=== PATIENT | female | born 1945 | race Caucasian/White ===

== ENCOUNTER 2019-09-24 12:09 | Emergency (ER) | payer OTHER, SELFPAY ==
[2019-09-24 12:37] VITALS: BP 118/63; PULSE 79; RESP 20; TEMP 36.4; O2SAT 100
--- NOTE | 2019-09-24 12:38 | ED.FEMALEGU ---
HPI - Female Genitourinary General Chief complaint: Urogenital-Female Stated complaint: UTI symptoms Time Seen by Provider: 09/24/19 12:38 Source: patient and RN notes reviewed History of Present Illness HPI Narrative: Patient is 74-year-old female that presents the urgent care with complaints of a possible UTI. Patient states that on Wednesday and morning she was having some urinary frequency and burning which subsided until this morning approximately 4 hours ago. Patient states that she has extreme urgency, frequency, burning with urination and suprapubic pressure. Patient denies any abdominal pain, fever, nausea, vomiting. Denies any frequent history of urinary tract infections. No other acute complaints. No acute distress noted. Patient had a plan of care. Related Data Home Medications Medication Instructions Recorded Confirmed omeprazole 09/24/19 simvastatin mg 09/24/19 Allergies Allergy/AdvReac Type Severity Reaction Status Date / Time codeine Allergy Severe NAUSEA AND Verified 09/24/19 12:34 VOMITING hydrocodone Allergy Severe NAUSEA AND Verified 09/24/19 12:34 VOMITING morphine Allergy Severe NAUSEA AND Verified 09/24/19 12:34 VOMITING NSAIDS (Non-Steroidal Allergy Severe NAUSEA AND Verified 09/24/19 12:34 Anti-Inflamma VOMITING tramadol Allergy Severe NAUSEA AND Verified 09/24/19 12:34 VOMITING amoxicillin Allergy Unknown GI UPSET Unverified 09/24/19 12:34 clavulanic acid Allergy Unknown GI UPSET Unverified 09/24/19 12:34 Review of Systems Review of Systems: Narrative: CONSTITUTIONAL: Denies fever, chills, or sweats. EYES: Denies visual changes, redness, or discharge. ENT: Denies rhinorrhea, congestion, sore throat, or otalgia. CARDIOVASCULAR: Denies chest pain, palpitations, or edema. RESPIRATORY: Denies cough or dyspnea. GASTROINTESTINAL: Denies abdominal pain, nausea, vomiting, or diarrhea. GENITOURINARY: Reports of dysuria, frequency, urgency, suprapubic pressure SKIN: Denies rash or itching. MUSCULOSKELETAL: Denies back pain, joint pain, or myalgia. NEUROLOGIC: Denies headache, numbness, or weakness. All other systems reviewed are negative, except as documented in HPI. PMFSH Comments At the time of my signature, I reviewed and agree with the nursing past medical, surgical, social, and family history. There is no relevant family history pertinent to the patient complaint. Exam Narrative: Exam Narrative: GENERAL: This is a well-nourished, well-developed patient, in no apparent distress. HEAD: normocephalic, atraumatic. EYES: PERRL. Sclera clear/white. Vision is grossly intact. EARS: External ears normal NOSE: External nose normal with no obvious nasal discharge, nares without redness, no rhinorrhea. THROAT: Mucous membranes moist NECK: Neck supple CARDIOVASCULAR: Regular rate and rhythm without murmurs, gallops, or rubs. RESPIRATORY: Clear to auscultation. Breath sounds equal bilaterally. No wheezes, rales, or rhonchi. GASTROINTESTINAL: Abdomen soft, mild suprapubic pressure, nondistended. SKIN: warm, intact with no suspicious lesions or rash, good texture and turgor. NEURO: awake, alert, and oriented to person, place and time. There were no obvious focal neurologic abnormalities. EXTREMITIES: No clubbing, cyanosis, or edema. BACK: Negative bilateral CVA tenderness Course Vital Signs Vital signs: Vital Signs Temperature 97.6 F 09/24/19 12:37 Pulse Rate 79 09/24/19 12:37 Respiratory Rate 20 09/24/19 12:37 Blood Pressure 118/63 09/24/19 12:37 Pulse Oximetry 100 09/24/19 12:37 Temperature 97.6 F 09/24/19 12:37 Pulse Rate 79 09/24/19 12:37 Respiratory Rate 20 09/24/19 12:37 Blood Pressure 118/63 09/24/19 12:37 Pulse Oximetry 100 09/24/19 12:37 Reviewed MDM - Female Genitourinary MDM Narrative Medical decision making narrative: Reviewed lab results with the patient. She is aware that urine analysis was positive for urina
== END 2019-09-24 13:11 | disposition home or self-care (01) ==
PROVIDERS: Emergency Provider Nurse Practitioner Family; PCP Family Medicine
DX: N39.0 Urinary tract infection, site not specified (principal); E78.00 Pure hypercholesterolemia, unspecified; K21.9 Gastro-esophageal reflux disease without esophagitis; Z96.662 Presence of left artificial ankle joint; Z96.651 Presence of right artificial knee joint
CPT/HCPCS: 81003; 87077; 87086; 87088; 87186; 99213; G0463

== ENCOUNTER 2021-03-08 19:18 | Emergency (ER) | payer OTHER, SELFPAY ==
[2021-03-08 19:23] VITALS: BP 114/62; PULSE 84; RESP 16; TEMP 36.7; O2SAT 99
--- NOTE | 2021-03-08 19:58 | ED.GENADULT ---
HPI - General Adult General Chief complaint: Extremity Problem,Nontraumatic Stated complaint: R FOOT PAIN Time Seen by Provider: 03/08/21 19:58 Source: patient and RN notes reviewed Mode of arrival: ambulatory Limitations: no limitations History of Present Illness HPI narrative: 75-year-old female presents with complaints of redness, warmth, pain, and swelling to right foot for 1 day. Silvina reported bunionectomy on February 27, 2021 and on March 07 noticed redness to top of foot which included little toe. Increasing redness, swelling, and pain throughout the night and day. No treatment. Denies radiating pain, redness, or swelling. Exacerbating factors consist of movement. Denies open areas or drainage. Denies fever or chills. Denies nausea, vomiting, and abdominal pain. Tolerating po intake well. Denies dyspnea and chest pain. The patient reports she has not been diagnosed with COVID-19. The patient reports she received 2 Moderna COVID-19 vaccines. The patient reports she is not waiting for the results of a COVID-19 lab test. The patient reports she does not have weakness, fatigue, or myalgia. The patient reports he does not have a new or worsening cough. The patient reports he does not have any rhinorrhea, congestion, loss of taste or smell, sore throat, and diarrhea. Denies recent traveling. Denies concerns for COVID-19 or exposures. At this time, the patient is not suspected of having COVID-19. Some parts of this dictation were generated by voice recognition software and may contain typographical and/or grammatical inaccuracies. Related Data Home Medications Medication Instructions Recorded Confirmed omeprazole 20 mg PO DAILY 09/24/19 10/29/20 simvastatin 40 mg PO DAILY 09/24/19 10/29/20 biotin 10,000 mcg capsule 10,000 mcg PO DAILY 10/21/20 10/29/20 calcium carbonate 600 mg calcium 600 mg PO DAILY 10/21/20 03/08/21 (1,500 mg) tablet inulin-chromium picolinate 2 1 tablet PO DAILY 10/21/20 03/08/21 gram-100 mcg chewable tablet loperamide-simethicone 2 mg-125 mg 1 tablet PO Q3H PRN 10/21/20 03/08/21 tablet Allergies Allergy/AdvReac Type Severity Reaction Status Date / Time codeine Allergy Severe NAUSEA AND Verified 03/08/21 19:40 VOMITING hydrocodone Allergy Severe NAUSEA AND Verified 03/08/21 19:40 VOMITING morphine Allergy Severe NAUSEA AND Verified 03/08/21 19:40 VOMITING NSAIDS (Non-Steroidal Allergy Severe NAUSEA AND Verified 03/08/21 19:40 Anti-Inflamma VOMITING tramadol Allergy Severe NAUSEA AND Verified 03/08/21 19:40 VOMITING amoxicillin Allergy Unknown GI UPSET Unverified 03/08/21 19:40 clavulanic acid Allergy Unknown GI UPSET Unverified 03/08/21 19:40 Review of Systems Review of Systems: Narrative: CONSTITUTIONAL: Denies fever, chills, sweats. EYES: Denies visual changes, redness, discharge. ENT: Denies rhinorrhea, congestion, sore throat, otalgia. CARDIOVASCULAR: Denies chest pain, palpitations, edema. RESPIRATORY: Denies dyspnea, wheezing, cough. GASTROINTESTINAL: Denies abdominal pain, nausea, vomiting, diarrhea. SKIN: Complains of redness, swelling, warmth, and pain to RT foot. Denies drainage. MUSCULOSKELETAL: Denies acute back pain, joint pain, or myalgia. NEUROLOGIC: Denies numbness or focal weakness. PSYCHIATRIC: Denies anxiety or depression. All systems reviewed & are unremarkable except as noted in HPI and below. [facility] Past Medical History Medical History (Updated 03/09/21 @ 00:01 by Aracely Rubio) Allergies Arthritis Bunion of great toe of right foot GERD (gastroesophageal reflux disease) Surgical History Surgical History (Updated 03/08/21 @ 20:14 by WILLIAM Mendoza) History of ankle surgery LY History of breast mammoplasty History of bunionectomy of right great toe History of cholecystectomy History of hysterectomy History of knee surgery total RT knee History of left ankle joint replacement History of right knee join
== END 2021-03-08 20:25 | disposition home or self-care (01) ==
PROVIDERS: Emergency Provider Nurse Practitioner Family; PCP Family Medicine
DX: L03.115 Cellulitis of right lower limb (principal); Z87.891 Personal history of nicotine dependence; M19.90 Unspecified osteoarthritis, unspecified site; K21.9 Gastro-esophageal reflux disease without esophagitis; Z96.653 Presence of artificial knee joint, bilateral; Z96.662 Presence of left artificial ankle joint
CPT/HCPCS: 99213; G0463

== ENCOUNTER 2021-09-24 17:13 | Emergency (ER) | payer OTHER, SELFPAY ==
[2021-09-24 17:23] VITALS: BP 125/48; PULSE 76; RESP 16; TEMP 36.4; O2SAT 99
--- NOTE | 2021-09-24 17:54 | ED.FEMALEGU ---
HPI - Female Genitourinary General Chief complaint: Urogenital-Female Stated complaint: FREQUENT/BURNING URINATION Time Seen by Provider: 09/24/21 17:54 Source: patient and RN notes reviewed Mode of arrival: ambulatory Limitations: no limitations History of Present Illness HPI Narrative: 76-year-old female presents with concern for 1 day history of dysuria, suprapubic pressure. She reports history of urinary tract infections. She denies abdominal pain, back pain, fever, nausea, vomiting. Denies hematuria. MD elicited complaint: UTI Related Data Home Medications Medication Instructions Recorded Confirmed omeprazole 20 mg PO DAILY 09/24/19 10/29/20 simvastatin 40 mg PO DAILY 09/24/19 10/29/20 biotin 10,000 mcg capsule 10,000 mcg PO DAILY 10/21/20 10/29/20 calcium carbonate 600 mg calcium 600 mg PO DAILY 10/21/20 03/08/21 (1,500 mg) tablet inulin-chromium picolinate 2 1 tablet PO DAILY 10/21/20 03/08/21 gram-100 mcg chewable tablet loperamide-simethicone 2 mg-125 mg 1 tablet PO Q3H PRN 10/21/20 03/08/21 tablet Allergies Allergy/AdvReac Type Severity Reaction Status Date / Time codeine Allergy Severe NAUSEA AND Verified 03/08/21 19:40 VOMITING hydrocodone Allergy Severe NAUSEA AND Verified 03/08/21 19:40 VOMITING morphine Allergy Severe NAUSEA AND Verified 03/08/21 19:40 VOMITING NSAIDS (Non-Steroidal Allergy Severe NAUSEA AND Verified 03/08/21 19:40 Anti-Inflamma VOMITING tramadol Allergy Severe NAUSEA AND Verified 03/08/21 19:40 VOMITING amoxicillin Allergy Unknown GI UPSET Unverified 03/08/21 19:40 clavulanic acid Allergy Unknown GI UPSET Unverified 03/08/21 19:40 Review of Systems Review of Systems: CONSTITUTIONAL: Denies malaise, chills, sweats, or fever. CARDIOVASCULAR: Denies chest pain, palpitations, or edema. RESPIRATORY: Denies cough or dyspnea. GASTROINTESTINAL: Denies abdominal pain, nausea, vomiting, diarrhea GENITOURINARY: Reports dysuria, suprapubic pressure. Denies frequency, urgency, flank pain or hematuria. SKIN: Denies rash or itching. MUSCULOSKELETAL: Denies back pain or myalgia. All systems reviewed & are unremarkable except as noted in HPI and below PMFSH Past Medical History Medical History (Updated 09/24/21 @ 17:59 by Yael Fisher NP) Allergies Arthritis Bunion of great toe of right foot GERD (gastroesophageal reflux disease) Surgical History Surgical History (Updated 03/08/21 @ 20:14 by WILLIAM Mendoza) History of ankle surgery LY History of breast mammoplasty History of bunionectomy of right great toe History of cholecystectomy History of hysterectomy History of knee surgery total RT knee History of left ankle joint replacement History of right knee joint replacement March 2016 History of tonsillectomy Hx of appendectomy Family History Family History (Updated 03/08/21 @ 20:15 by WILLIAM Mendoza) Father Acute myocardial infarction, Onset Age: 67 Mother Heart disease Other Diabetes mellitus Social History Social History (Updated 03/08/21 @ 20:15 by WILLIAM Mendoza) Smoking status: Former smoker Tobacco type: cigarettes Second hand tobacco smoke exposure: No Smoking end date: 08/16/77 Alcohol intake: current Substance use: never Substance use type: does not use Gender identity (if verbalized by the patient): Female Sexual Orientation (if Verbalized by the Patient): Straight or Heterosexual Comments At time of signature, agree with nursing past medical, surgical, social and family history. There is no relevant family history pertinent to the presenting complaint Exam Narrative: GENERAL: Well-appearing, well-nourished, and in no acute distress. HEAD: Normocephalic. EYES: PERRLA, conjunctivae clear. NECK: Supple. No lymphadenopathy CHEST: Clear to auscultation. No respiratory distress. HEART: Regular rate and rhythm. ABDOMEN: Soft, nontender upon palpation, non
== END 2021-09-24 18:03 | disposition home or self-care (01) ==
PROVIDERS: Emergency Provider Nurse Practitioner; PCP Family Medicine
DX: R30.0 Dysuria (principal); R10.30 Lower abdominal pain, unspecified; M19.90 Unspecified osteoarthritis, unspecified site; K21.9 Gastro-esophageal reflux disease without esophagitis; Z96.651 Presence of right artificial knee joint; Z96.662 Presence of left artificial ankle joint; Z87.891 Personal history of nicotine dependence
CPT/HCPCS: 81003; 87077; 87086; 87186; 99213; G0463

== ENCOUNTER 2022-01-28 11:30 | Outpatient (RCR) | payer OTHER, SELFPAY ==
--- NOTE | 2021-12-30 17:46 | PTOPEVAL ---
PHYSICAL THERAPY EVALUATION AND PLAN OF CARE Thank you for referring Silvina Whitlock to [facility].? The patient is scheduled to participate in physical therapy to address pelvic floor dysfunction 1x/wk for 6-8wks. Please review, sign, date and return this plan of care RADHA. I agree with and certify that the following plan of care is medically necessary. Referring Physician Date Attending Provider: Laxmi Thorpe, MD Evaluation Diagnosis pelvic floor dysfunction Subjective Information Problem initially started Query Text:As Reported By Patient/ about 3 years ago with pain Family and diahrrea. She had colonoscopy and endoscopy without result. Was put on imodium with was fairly successful. Then found a right inguinal hernia which led to a CT and cysts on pancreas were found. Reports constant pain in the lower abdomen. She has fecal accidents frequently and after medication and tests she was constipation. 6months ago did a clear out of the colon. She has frequent fecal accidents and frequency and urgency of bowel movements. When she urinates, she will leak some fecal matter. Does have a history of prolapse and when she had a hysterectomy they did a tuck up. Will occasionally have leakage of urine. Pain Score 0: Self Report Lower Extremity Muscle Strength Testing Hip Strength Bilateral Hip Flexion Strength 4+ Good + Hip Extension Strength 3 Fair Hip Abduction Strength 3 Fair Hip Adduction Strength 3+ Fair + Knee Strength Bilateral Knee Flexion Strength 4+ Good + Knee Extension Strength 4+ Good + Pelvic Health Evaluation Pelvic Floor Assessment Permission Received for External/ Yes: external through clothing Internal Perineal Exam External Perineal Body Mobility Absent Involuntary Sustained Levator Ani Strength at least 3/5 power, 4seconds endurance, 6reps to fatigue Additional Comments able to perform appropriate PFC 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
--- NOTE | 2022-01-28 12:02 | PTOPEVAL ---
PHYSICAL THERAPY DISCHARGE NOTE Thank you for referring Silvina Whitlock to [facility].? Please review, sign, date and return this plan of care RADHA. I agree with and certify that the following plan of care is medically necessary. Referring Physician Date Attending Provider: Laxmi Thorpe, MD Diagnosis pelvic floor dysfunction Subjective Information Tells me that she is doing Query Text:As Reported By Patient/ really well over all. She Family continues to have some rumbly tummy issues that she is working on with her doctor. She understands that increased episodes of bowel movements and diahrrea can cause a limitation to progress in strengthening pelvic floor but she is understanding of how to perform her exercises and how to progress them Pain Assessment Timing of Pain Assessment Timing of Pain Assessment Assessment Self Report Self Report Pain Level 0 Pain Score Pain Score 0: Self Report Lower Extremity Muscle Strength Testing Hip Strength Bilateral Hip Flexion Strength 5 Normal Hip Extension Strength 4- Good - Hip Abduction Strength 4- Good - Hip Adduction Strength 4- Good - Knee Strength Bilateral Knee Flexion Strength 5 Normal Knee Extension Strength 5 Normal Pelvic Health Evaluation Pelvic Floor Assessment Permission Received for External/ Yes: external through clothing Internal Perineal Exam External Perineal Body Mobility Absent Involuntary Sustained Levator Ani Strength at least4/5 power, 8seconds endurance, 10reps PT Clinical Summary Silvina is a 76 yo female presenting to outpatient physical therapy with diagnosis of pelvic floor dysfunction and she has a complaint of fecal incontinence. She demonstrates significantly increased pelvic floor strength and is independent with her HEP. We will d/c from PT at this time.
== END 2022-01-28 14:01 | disposition home or self-care (01) ==
LOC: ANHPT 11:30
PROVIDERS: PCP Family Medicine; Visit Provider Family Medicine
DX: M62.89 Other specified disorders of muscle (principal)
CPT/HCPCS: 97110; 97112; 97163; 97530

== ENCOUNTER 2022-02-21 08:53 | Emergency (ER) | payer OTHER, SELFPAY ==
[2022-02-21 09:04] VITALS: BP 71/43; PULSE 82; RESP 16; TEMP 36; O2SAT 100
--- NOTE | 2022-02-21 09:27 | ED.FEMALEGU ---
HPI - Female Genitourinary General Chief complaint: Urogenital-Female Stated complaint: uti symptoms Time Seen by Provider: 02/21/22 09:24 Source: patient and RN notes reviewed Mode of arrival: ambulatory Limitations: no limitations History of Present Illness HPI Narrative: 76-year-old female presents with concern for urinary tract infection. She reports symptoms started this morning. She reports dysuria, urgency. She reports history of urinary tract infections. She denies fever, bodies, chills, sweats, nausea, vomiting, abdominal pain, fever. MD elicited complaint: UTI Related Data Home Medications Medication Instructions Recorded Confirmed simvastatin 40 mg tablet 40 mg PO DAILY 09/24/19 02/21/22 calcium carbonate 600 mg calcium 600 mg PO DAILY 10/21/20 02/21/22 (1,500 mg) tablet (Calcium) inulin-chromium picolinate 2 1 tablet PO BID 01/13/22 02/21/22 gram-100 mcg chewable tablet (Fiber Select Gummies) omeprazole 20 mg capsule,delayed 40 mg PO DAILY 01/13/22 02/21/22 release Allergies Allergy/AdvReac Type Severity Reaction Status Date / Time codeine Allergy Severe NAUSEA AND Verified 02/21/22 09:07 VOMITING hydrocodone Allergy Severe NAUSEA AND Verified 02/21/22 09:07 VOMITING morphine Allergy Severe NAUSEA AND Verified 02/21/22 09:07 VOMITING NSAIDS (Non-Steroidal Allergy Severe NAUSEA AND Verified 02/21/22 09:07 Anti-Inflamma VOMITING tramadol Allergy Severe NAUSEA AND Verified 02/21/22 09:07 VOMITING amoxicillin Allergy Unknown GI UPSET Unverified 02/21/22 09:07 clavulanic acid Allergy Unknown GI UPSET Unverified 02/21/22 09:07 Review of Systems Review of Systems: CONSTITUTIONAL: Denies malaise, chills, sweats, or fever. CARDIOVASCULAR: Denies chest pain, palpitations, or edema. RESPIRATORY: Denies cough or dyspnea. GASTROINTESTINAL: Denies abdominal pain, nausea, vomiting, diarrhea GENITOURINARY: Reports dysuria, frequency, urgency, suprapubic pressure. Denies flank pain or hematuria. SKIN: Denies rash or itching. MUSCULOSKELETAL: Denies back pain or myalgia. All systems reviewed & are unremarkable except as noted in HPI and below PMFSH Past Medical History Medical History Allergies Arthritis Bunion of great toe of right foot GERD (gastroesophageal reflux disease) Surgical History Surgical History History of ankle surgery LY History of breast mammoplasty History of bunionectomy of right great toe History of cholecystectomy History of hysterectomy History of knee surgery total RT knee History of left ankle joint replacement History of right knee joint replacement March 2016 History of tonsillectomy Hx of appendectomy Family History Family History Father Acute myocardial infarction, Onset Age: 67 Mother Heart disease Other Diabetes mellitus Social History Social History Smoking status: Former smoker Tobacco type: cigarettes Second hand tobacco smoke exposure: No Smoking end date: 08/16/77 Alcohol intake: current Substance use: never Substance use type: does not use Gender identity (if verbalized by the patient): Female Sexual Orientation (if Verbalized by the Patient): Straight or Heterosexual Comments At time of signature, agree with nursing past medical, surgical, social and family history. There is no relevant family history pertinent to the presenting complaint Exam Narrative: GENERAL: Well-appearing, well-nourished, and in no acute distress. HEAD: Normocephalic. EYES: PERRLA, conjunctivae clear. NECK: Supple. No lymphadenopathy CHEST: Clear to auscultation. No respiratory distress. HEART: Regular rate and rhythm. ABDOMEN: Soft, nontender upon palpation, nondistended, normal a
== END 2022-02-21 09:38 | disposition home or self-care (01) ==
PROVIDERS: Emergency Provider Nurse Practitioner; PCP Family Medicine
DX: N39.0 Urinary tract infection, site not specified (principal); Z87.891 Personal history of nicotine dependence; M19.90 Unspecified osteoarthritis, unspecified site; K21.9 Gastro-esophageal reflux disease without esophagitis; Z96.662 Presence of left artificial ankle joint; Z96.651 Presence of right artificial knee joint
CPT/HCPCS: 81003; 87077; 87086; 87186; 99213; G0463

== ENCOUNTER 2022-10-30 18:01 | Emergency (ER) | payer OTHER, SELFPAY ==
--- NOTE | ~2022-10-30 | XR_ITS ---
XR foot LT min 3V 10/30/2022 18:27 Indication: Left lateral foot pain Procedure: 4 views left foot Comparison: No prior studies for comparison. Findings: There is deformity of the distal aspect of the fifth metatarsal, likely an osteotomy defect . Mild soft tissue swelling. There is osteoarthritis of the first MTP joint. Lisfranc joint intact. T here are surgical changes of the tibiotalar joint. Mild polyarticular osteoarthritis of the midfoot. No acute fracture is identified. Impression: 1: No acute fracture. 2: Deformity of the distal aspect of the fifth metatarsal, likely postsurgical. Correlate clinically. Reviewed, dictated and finalized at location A. Impression: 1: No acute fracture. 2: Deformity of the distal aspect of the fifth metatarsal, likely postsurgical. Correlate clinically.
--- NOTE | 2022-10-30 18:02 | ED.LOWEXIN ---
HPI - Extremity Injury (Lower) General Chief Complaint: Extremity Problem,Nontraumatic Stated Complaint: L FOOT PAIN Time Seen by Provider: 10/30/22 18:02 Source: patient Mode of arrival: ambulatory Limitations: no limitations History of Present Illness HPI Narrative: Silvina is a 77-year-old female patient presenting to the clinic today with complaints of left foot pain. She reports she has had left foot pain that began on Wednesday of this week. Denies any known injury to her foot. 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 States this pain is to the lateral foot Related Data Home Medications Medication Instructions Recorded Confirmed calcium carbonate 600 mg calcium 600 mg PO DAILY 10/21/20 10/30/22 (1,500 mg) tablet (Calcium) omeprazole 20 mg capsule,delayed 40 mg PO DAILY 01/13/22 10/30/22 release acetaminophen 325 mg tablet 650 mg PO ONCE PRN Pain 10/30/22 10/30/22 (Tylenol) gabapentin 300 mg capsule 300 mg PO HS 10/30/22 10/30/22 simvastatin 40 mg tablet 40 mg PO DAILY 10/30/22 10/30/22 Allergies Allergy/AdvReac Type Severity Reaction Status Date / Time codeine Allergy Severe NAUSEA AND Verified 10/30/22 18:11 VOMITING hydrocodone Allergy Severe NAUSEA AND Verified 10/30/22 18:11 VOMITING morphine Allergy Severe NAUSEA AND Verified 10/30/22 18:11 VOMITING NSAIDS (Non-Steroidal Allergy Severe NAUSEA AND Verified 10/30/22 18:11 Anti-Inflamma VOMITING tramadol Allergy Severe NAUSEA AND Verified 10/30/22 18:11 VOMITING amoxicillin Allergy Unknown GI UPSET Verified 10/30/22 18:11 clavulanic acid Allergy Unknown GI UPSET Verified 10/30/22 18:11 Review of Systems Review of Systems: Pertinent positives per HPI. Patient denies any fever, chills, rash, headache, visual changes, dizziness, cough, runny nose, sore throat, shortness of breath, chest pain, palpitations, nausea, vomiting, diarrhea, constipation, abdominal pain, or any urinary issues. [facility] Past Medical History Medical History Allergies Arthritis Bunion of great toe of right foot Colon cancer screening GERD (gastroesophageal reflux disease) Irritable bowel syndrome with constipation Lesion of pancreas Surgical History Surgical History History of ankle surgery LY History of breast mammoplasty History of bunionectomy of right great toe History of cholecystectomy History of hysterectomy History of knee surgery total RT knee History of left ankle joint replacement History of right knee joint replacement March 2016 History of tonsillectomy Hx of appendectomy Family History Family History Father Acute myocardial infarction, Onset Age: 67 Mother Heart disease Other Diabetes mellitus Social History Social History Smoking status: Former smoker Tobacco type: cigarettes Second hand tobacco smoke exposure: No Smoking end date: 08/16/77 Alcohol intake: current Substance use: never Substance use type: does not use Living arrangements: with family Occupation/Education: retired Gender identity (if verbalized by the patient): Female Sexual Orientation (if Verbalized by the Patient): Straight or Heterosexual Comments At the time of my signature, I reviewed and agree with the nursing past medical, surgical, social, and family history. There is no relevant family history pertinent to the patient complaint. Exam Narrative: General: Well-developed, well nourished, in no apparent distress Head: Normocephalic, atraumatic. Cardio: Regular rate and rhythm, s1 and s2 normal, no murmur appreciated. Resp: Clear to auscultation bilaterally, no rhonchi, rales, wheezing or rubs. Musculoskeletal: No deformity, tender to palp
[2022-10-30 18:07] VITALS: BP 116/89; PULSE 82; RESP 16; TEMP 36.4; O2SAT 100
== END 2022-10-30 18:55 | disposition home or self-care (01) ==
PROVIDERS: Emergency Provider Nurse Practitioner Family; PCP Family Medicine
DX: M79.672 Pain in left foot (principal); Z87.891 Personal history of nicotine dependence
CPT/HCPCS: 73630; 99213; G0463

== ENCOUNTER 2023-09-22 07:20 | Outpatient (CLI) | payer OTHER, SELFPAY ==
--- NOTE | ~2023-09-22 | XR_ITS ---
EXAMINATION: XR sacroiliac joints min 3V DATE: 09/22/2023 08:07 INDICATION: Multiple joint pain. TECHNIQUE: 4 views of the sacrococcygeal joints were obtained. COMPARISON: None. FINDINGS: There is lumbar levoscoliosis and severe spondylosis. No fracture. There is mild osteoarthr itis of the sacroiliac joints and hip joints. IMPRESSION: 1. Mild osteoarthritis of the sacroiliac joints. Reviewed, dictated and finalized at location E. [employer]
--- NOTE | ~2023-09-22 | XR_ITS ---
Left wrist Technique: PA and lateral views were obtained. Clinical History: Pain Findings: No acute fracture or dislocation is seen. Osseous alignment is anatomic. Joint spaces are p reserved. Soft tissues are unremarkable. Impression: Unremarkable left wrist radiographs. Reviewed, dictated and finalized at location M. OPS ENGINEER Impression: Unremarkable left wrist radiographs.
--- NOTE | ~2023-09-22 | XR_ITS ---
EXAMINATION: XR ankle RT 2V, XR foot RT 2V DATE: 09/22/2023 08:07 INDICATION: Multiple joint pain at the right foot and ankle TECHNIQUE: 1. Anteroposterior and lateral view of the right ankle were obtained. 2. Dorsoplantar and lateral views of the right foot were obtained. COMPARISON: None. FINDINGS: Osteotomies at the neck of the fifth metatarsal and base of the fifth proximal phalanx. Fusion across the second-fourth proximal interphalangeal joints with fixation device spanning the third proximal i nterphalangeal joint. No fractures identified. Mild polyarticular osteoarthritis at the multiple join ts in the mid and forefoot. No erosions to suggest inflammatory arthritis. Small plantar calcaneal sp ur. Small amount of enthesopathic ossification at the distal Achilles tendon. Soft tissues are unrema rkable. No ankle joint effusion. IMPRESSION: 1. Postoperative changes in the right forefoot as detailed above. 2. 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 The 3. Chronic Achilles and plantar calcaneal enthesopathy. Reviewed, dictated and finalized at location A. PER DIEM IMPRESSION: 1. Postoperative changes in the right forefoot as detailed above. 2. 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 The 3. Chronic Achilles and plantar calcaneal enthesopathy.
--- NOTE | ~2023-09-22 | XR_ITS ---
EXAMINATION: XR foot LT 2V DATE: 09/22/2023 08:07 INDICATION: Multiple joint pain. TECHNIQUE: 2 views of left foot were obtained. COMPARISON: Left foot radiographs 10/30/2022 FINDINGS: There is chronic deformity of head of fifth metatarsal which may be from old trauma or old surgery. There is ankylosis of second, third, and fourth proximal interphalangeal joints. There are c hanges of ankle joint replacement. There is mild osteoarthritis of first metatarsophalangeal joint an d some of the midfoot joints. There are enthesophytes at the posterior and plantar aspects of calcane al tuberosity. IMPRESSION: 1. Polyarticular osteoarthritis. 2. Ankle joint replacement. Reviewed, dictated and finalized at location E. ESSING TECHNICIAN
--- NOTE | ~2023-09-22 | XR_ITS ---
Right wrist Technique: PA and lateral views were obtained. Clinical History: Pain Findings: No acute fracture or dislocation is seen. Osseous alignment is anatomic. There is degenerat ramon change of the triscaphe joint. Soft tissues are unremarkable. Impression: Degenerative change of the triscaphe joint. Reviewed, dictated and finalized at location . PACKAGER Impression: Degenerative change of the triscaphe joint.
--- NOTE | ~2023-09-22 | XR_ITS ---
EXAMINATION: XR hand BI arthritis min 3V DATE: 09/22/2023 08:07 INDICATION: Multiple joint pain. TECHNIQUE: 4 views of right hand and 4 views of left hand on a total of 7 radiographs were obtained. COMPARISON: None. FINDINGS: RIGHT HAND: Bone alignment is normal. There is an old healed fracture of base of fifth metacarpal. No acute fracture. 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 There is mild osteoarthritis of firs t carpometacarpal joint and moderate osteoarthritis of third metacarpophalangeal joint. There is mild osteoarthritis of first metacarpophalangeal joint and some of the interphalangeal joints. There is s evere osteoarthritis of first interphalangeal joint and second distal interphalangeal joint and moder ate osteoarthritis of third-fifth distal interphalangeal joints. LEFT HAND: Bone alignment is normal. No fracture. There is severe osteoarthritis of triscaphe joint a nd moderate osteoarthritis of first carpometacarpal joint. There is mild osteoarthritis of some of th e interphalangeal joints. There is severe osteoarthritis of first interphalangeal joint and second an d fifth distal interphalangeal joints and moderate osteoarthritis of fifth proximal interphalangeal j oint. IMPRESSION: 1. Polyarticular osteoarthritis. Reviewed, dictated and finalized at location E. T FUEL ENGINEER
== END 2023-09-22 07:21 | disposition home or self-care (01) ==
PROVIDERS: PCP Family Medicine; Visit Provider Nurse Practitioner Family
DX: R53.81 Other malaise (principal); M46.1 Sacroiliitis, not elsewhere classified; M19.042 Primary osteoarthritis, left hand; M19.041 Primary osteoarthritis, right hand; M19.072 Primary osteoarthritis, left ankle and foot; M19.071 Primary osteoarthritis, right ankle and foot; M77.31 Calcaneal spur, right foot; M77.51 Other enthesopathy of right foot and ankle; M19.031 Primary osteoarthritis, right wrist
CPT/HCPCS: 72202; 73100; 73130; 73600; 73620

== ENCOUNTER 2023-12-30 07:00 | Outpatient (NON) | payer OTHER, SELFPAY | END 2023-12-30 07:01 | disposition home or self-care (01) | PROVIDERS: PCP Family Medicine; Visit Provider Internal Medicine Gastroenterology | DX: Z12.11 Encounter for screening for malignant neoplasm of colon (principal); D12.2 Benign neoplasm of ascending colon | CPT/HCPCS: 88305 ==

== ENCOUNTER 2023-12-30 07:23 | Day surgery (SDC) | payer OTHER, SELFPAY ==
[2023-12-08 11:09] VITALS: BMI 21.1
[2023-12-30 08:56] VITALS: BMI 20.8
[2023-12-30 09:05] VITALS: BP 116/76; PULSE 60; RESP 18; TEMP 36.6; O2SAT 100
--- NOTE | 2023-12-30 09:12 | PM.HPGS ---
History of Present Illness History of Present Illness Consent: Risks, benefits, and alternatives have been discussed and questions answered. Patient agrees to proceed with procedure. Chief complaint: Hemorrhage of Anus and Rectum Narrative: Silvina Whitlock is a 78 year old female colonoscopy because of rectal bleeding. Patient has had several episodes of bright red blood per rectum. This typically does not last very long. She has had some irregular stools. Recently complains of control issues. Symptoms appear to improve with fiber supplements such as brand. Previously tried laxatives with no benefit. 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 She has an annual MRCP. Currently this is felt to be stable. Review of Systems Review of Systems: Review of systems noncontributory. She reports occasional fecal incontinence when walking PMFSH Past Medical History Medical History (Updated 12/30/23 @ 09:15 by Francisco Perkins MD) Allergies Arthritis Bright red blood per rectum Bunion of great toe of right foot Colon cancer screening Dilation of biliary tract GERD (gastroesophageal reflux disease) Irritable bowel syndrome with constipation Lesion of pancreas Rectocele, female Surgical History Surgical History History of ankle surgery LY History of breast mammoplasty History of bunionectomy of right great toe History of cholecystectomy History of hysterectomy History of knee surgery total RT knee History of left ankle joint replacement History of right knee joint replacement March 2016 History of tonsillectomy Hx of appendectomy Family History Family History Father Acute myocardial infarction, Onset Age: 67 Mother Heart disease Other Diabetes mellitus Social History Social History Smoking status: Former smoker Tobacco type: cigarettes Second hand tobacco smoke exposure: No Smoking end date: 08/16/77 Alcohol intake: current Substance use: never Substance use type: does not use Living arrangements: with family Occupation/Education: retired Gender identity (if verbalized by the patient): Female Sexual Orientation (if Verbalized by the Patient): Straight or Heterosexual Meds Home Medications and Allergies Home Medications Medication Instructions Recorded Confirmed Type calcium carbonate (Calcium 600) 600 mg PO DAILY 10/21/20 12/30/23 History acetaminophen 325 mg tablet 650 mg PO ONCE PRN Pain 10/30/22 12/30/23 History (Tylenol) gabapentin 300 mg capsule 300 mg PO HS 10/30/22 12/30/23 History simvastatin 40 mg tablet 40 mg PO DAILY 10/30/22 12/30/23 History omeprazole 40 mg capsule,delayed 40 mg PO DAILY #90 caps 03/18/23 12/30/23 Rx release azelastine 137 mcg (0.1 %) nasal 1 spray intranasal Q12H 10/20/23 12/30/23 History spray aerosol Allergies Allergy/AdvReac Type Severity Reaction Status Date / Time codeine AdvReac Severe NAUSEA AND Verified 12/30/23 08:49 VOMITING hydrocodone AdvReac Severe NAUSEA AND Verified 12/30/23 08:49 VOMITING morphine AdvReac Severe NAUSEA AND Verified 12/30/23 08:49 VOMITING NSAIDS (Non-Steroidal AdvReac Severe NAUSEA AND Verified 12/30/23 08:49 Anti-Inflamma VOMITING tramadol AdvReac Severe NAUSEA AND Verified 12/30/23 08:49 VOMITING amoxicillin AdvReac Unknown GI UPSET Verified 12/30/23 08:49 clavulanic acid AdvReac Unknown GI UPSET Verified 12/30/23 08:49 Vital Signs Vital Signs - 24 hr 12/30/23 09:05 Temperature 98 F Pulse Rate 60 Respiratory Rate 18 Blood Pressure 116/76 Pulse Oximetry 100 Oxygen Delivery Room Air Exam Narrative: Physical exam reveals patient to be alert. Vital signs stable. HEENT exam is unremarkable. Ej
[2023-12-30] MEDS: LACTATED RINGERS 1,000 ML 150 ML IV CONT (09:17)
--- NOTE | 2023-12-30 09:40 | WPDANESEPPF ---
Anes - Initial Pre Proc Eval Procedure: Operation Date: 12/30/23 10:00 Proposed Procedures p Diagnostic Colonoscopy - Francisco Perkins MD Date/Time: 12/30/23 09:40 Surgeon: Francisco Perkins MD Pre Op Diagnosis: Hemorrhage of Anus and Rectum Patient Data Age: 78 Gender: F Height: 1.7 m Weight: 60.4 kg Last Vital Signs Temp 36.6 C 12/30/23 09:05 Pulse 60 12/30/23 09:05 Resp 18 12/30/23 09:05 BP 116/76 12/30/23 09:05 Pulse Ox 100 12/30/23 09:05 O2 Del Method Room Air 12/30/23 09:05 Allergies Allergy/AdvReac Type Severity Reaction Status Date / Time codeine AdvReac Severe NAUSEA AND Verified 12/30/23 08:49 VOMITING hydrocodone AdvReac Severe NAUSEA AND Verified 12/30/23 08:49 VOMITING morphine AdvReac Severe NAUSEA AND Verified 12/30/23 08:49 VOMITING NSAIDS (Non-Steroidal AdvReac Severe NAUSEA AND Verified 12/30/23 08:49 Anti-Inflamma VOMITING tramadol AdvReac Severe NAUSEA AND Verified 12/30/23 08:49 VOMITING amoxicillin AdvReac Unknown GI UPSET Verified 12/30/23 08:49 clavulanic acid AdvReac Unknown GI UPSET Verified 12/30/23 08:49 Home Medications Medication Instructions Recorded Confirmed Type calcium carbonate (Calcium 600) 600 mg PO DAILY 10/21/20 12/30/23 History acetaminophen 325 mg tablet 650 mg PO ONCE PRN Pain 10/30/22 12/30/23 History (Tylenol) gabapentin 300 mg capsule 300 mg PO HS 10/30/22 12/30/23 History simvastatin 40 mg tablet 40 mg PO DAILY 10/30/22 12/30/23 History omeprazole 40 mg capsule,delayed 40 mg PO DAILY #90 caps 03/18/23 12/30/23 Rx release azelastine 137 mcg (0.1 %) nasal 1 spray intranasal Q12H 10/20/23 12/30/23 History spray aerosol Patient hx anesthesia problems: post op nausea/vomiting Family hx anesthesia problems: post op nausea/vomiting Results Review: All pre-operative results and documents have been reviewed as part of the pre-operative evaluation. [facility] Past Medical History Medical History Allergies Arthritis Bright red blood per rectum Bunion of great toe of right foot Colon cancer screening Dilation of biliary tract GERD (gastroesophageal reflux disease) Irritable bowel syndrome with constipation Lesion of pancreas Rectocele, female Surgical History Surgical History History of ankle surgery LY History of breast mammoplasty History of bunionectomy of right great toe History of cholecystectomy History of hysterectomy History of knee surgery total RT knee History of left ankle joint replacement History of right knee joint replacement March 2016 History of tonsillectomy Hx of appendectomy Family History Family History Father Acute myocardial infarction, Onset Age: 67 Mother Heart disease Other Diabetes mellitus Social History Social History Smoking status: Former smoker Tobacco type: cigarettes Second hand tobacco smoke exposure: No Smoking end date: 08/16/77 Alcohol intake: current Substance use: never Substance use type: does not use Living arrangements: with family Occupation/Education: retired Gender identity (if verbalized by the patient): Female Sexual Orientation (if Verbalized by the Patient): Straight or Heterosexual Anes - Eval Final PreProcedure Day of Procedure 12/30/23 09:40 Patient weight: normal Heart: regular rate and rhythm Lungs: clear to auscultation Airway: Mallampati scale class II Neurological: alert and oriented Last oral intake: >/= 8 hours ASA classification: III Emergent: no Anesthetic plan: proceed Anesthesia type and monitoring: general GIVS and standard monitoring Results Review: All pre-operative results and documents have been reviewed as part of the pre-operative evalu
[2023-12-30 10:10] VITALS: BP 97/61; PULSE 100; RESP 99; O2SAT 99
[2023-12-30 10:20] VITALS: BP 94/57; PULSE 105; RESP 17; O2SAT 100
[2023-12-30 10:30] VITALS: BP 93/75; PULSE 91; RESP 16; O2SAT 100
[2023-12-30 10:40] VITALS: BP 116/67; PULSE 62; RESP 16; O2SAT 100
--- NOTE | 2023-12-30 10:41 | WPDANESPN ---
Anes - Prog Note Post-Op Date/Time: 12/30/23 10:41 Cardiovascular status: normal Respiratory status: normal Airway patency: baseline Mental status: baseline Post-Op hydration status: normal Vital Signs: Last Vital Signs Temp 36.6 C 12/30/23 09:05 Pulse 91 12/30/23 10:30 Resp 16 12/30/23 10:30 BP 93/75 L 12/30/23 10:30 Pulse Ox 100 12/30/23 10:30 O2 Del Method Room Air 12/30/23 10:30 Pain Score (VAS): 0 I/O: Intake & Output 12/29/23 12/30/23 12/30/23 23:59 07:59 15:59 Intake Total 300 Balance 300 Patient Feedback: Patient satisfied with anesthetic care.
== END 2023-12-30 10:54 | disposition home or self-care (01) ==
PROVIDERS: PCP Family Medicine; Visit Provider Internal Medicine Gastroenterology
PROC: 0DJD8ZZ Inspection of Lower Intestinal Tract, Via Natural or Artificial Opening Endoscopic (ICD-10-PCS; CPT 45378; principal; 2023-12-30 10:00)
DX: Z12.11 Encounter for screening for malignant neoplasm of colon (principal); D12.2 Benign neoplasm of ascending colon; K64.8 Other hemorrhoids
CPT/HCPCS: 45380

== ENCOUNTER 2024-05-19 14:33 | Emergency (ER) | payer OTHER, SELFPAY ==
[2024-05-19 14:53] VITALS: BP 114/79; PULSE 84; RESP 16; TEMP 36.1; O2SAT 100
[2024-05-19 14:56] LABS: EDUAAPPEAR Cloudy; EDUABILI Negative (Negative); EDUABLOOD 2+ (Negative); EDUACOLOR1 Light/Pale; EDUAGLUCOSE Negative (Negative); EDUAKETONE Negative (Negative); EDUALEUKO 3+ (Negative); EDUANITRATE Negative (Negative); EDUAPROTEIN Negative (Negative); EDUAUROBILI 0.2
--- NOTE | 2024-05-19 14:56 | ED.ABDPAIN ---
HPI - Abdominal Pain General Chief Complaint: Urogenital-Female Stated Complaint: uti symptoms Time Seen by Provider: 05/19/24 14:57 Source: patient, RN notes reviewed and old records reviewed Mode of arrival: ambulatory Limitations: no limitations History of Present Illness HPI narrative: patient presents with complaints of urinary frequency, burning, hesitancy. Symptoms began in the wee hours of the morning. Patient reports that they woke her up from her sleep. She denies any fever sweats, she does report chills. Denies any back pain or abdominal pain, says she just generally feels not good Related Data Home Medications Medication Instructions Recorded Confirmed acetaminophen 325 mg tablet 650 mg PO ONCE PRN Pain 10/30/22 05/19/24 (Tylenol) gabapentin 300 mg capsule 300 mg PO HS 10/30/22 05/19/24 simvastatin 40 mg tablet 40 mg PO DAILY 10/30/22 05/19/24 azelastine 137 mcg (0.1 %) nasal 1 spray intranasal Q12H 10/20/23 05/19/24 spray calcium 600 mg (as 1 tablet PO BID 05/19/24 05/19/24 carbonate)-vitamin D3 10 mcg (400 unit) tablet (Calcium with Vitamin D) Allergies Allergy/AdvReac Type Severity Reaction Status Date / Time codeine AdvReac Severe NAUSEA AND Verified 05/19/24 14:46 VOMITING hydrocodone AdvReac Severe NAUSEA AND Verified 05/19/24 14:46 VOMITING morphine AdvReac Severe NAUSEA AND Verified 05/19/24 14:46 VOMITING NSAIDS (Non-Steroidal AdvReac Severe NAUSEA AND Verified 05/19/24 14:46 Anti-Inflamma VOMITING tramadol AdvReac Severe NAUSEA AND Verified 05/19/24 14:46 VOMITING amoxicillin AdvReac Unknown GI UPSET Verified 05/19/24 14:46 clavulanic acid AdvReac Unknown GI UPSET Verified 05/19/24 14:46 Review of Systems Review of Systems: All systems reviewed & are unremarkable except as noted in HPI and below Constitutional: Constitutional: Reports as per HPI and Reports no additional constitutional complaints ENT: Reports system reviewed and no additional complaints, except as documented Cardiovascular: Cardiovascular: Reports as per HPI and Reports no additional cardiovascular complaints Respiratory: Respiratory: Reports as per HPI and Reports no additional respiratory complaints Gastrointestinal: Gastrointestinal: Reports no additional gastrointestinal complaints Genitourinary: Genitourinary: Reports as per HPI, Reports dysuria, Reports urinary hesitancy and Reports urinary urgency [facility] Past Medical History Medical History Allergies Arthritis Bright red blood per rectum Bunion of great toe of right foot Colon cancer screening Dilation of biliary tract GERD (gastroesophageal reflux disease) Irritable bowel syndrome with constipation Lesion of pancreas Rectocele, female Surgical History Surgical History History of ankle surgery LY History of breast mammoplasty History of bunionectomy of right great toe History of cholecystectomy History of hysterectomy History of knee surgery total RT knee History of left ankle joint replacement History of right knee joint replacement March 2016 History of tonsillectomy Hx of appendectomy Family History Family History Father Acute myocardial infarction, Onset Age: 67 Mother Heart disease Other Diabetes mellitus Social History Social History Smoking status: Former smoker Tobacco type: cigarettes Second hand tobacco smoke exposure: No Smoking end date: 08/16/77 Alcohol intake: current Substance use: never Substance use type: does not use Living arrangements: with family Occupation/Education: retired Gender identity (if verbalized by the patient): Female Sexual Orientation (if Verbalized by the Patient): Straight or Heterosexual Comments
== END 2024-05-19 15:05 | disposition home or self-care (01) ==
PROVIDERS: Emergency Provider Nurse Practitioner Family; PCP Family Medicine
DX: N39.0 Urinary tract infection, site not specified (principal); Z87.891 Personal history of nicotine dependence; M19.90 Unspecified osteoarthritis, unspecified site; K21.9 Gastro-esophageal reflux disease without esophagitis; Z96.662 Presence of left artificial ankle joint; Z96.651 Presence of right artificial knee joint
CPT/HCPCS: 81003; 87077; 87086; 87186; 99213; G0463

== ENCOUNTER 2025-05-13 12:51 | Emergency (ER) | payer OTHER, SELFPAY ==
[2025-05-13 12:59] VITALS: BP 116/52; PULSE 74; RESP 16; TEMP 36.2; O2SAT 94
[2025-05-13 13:17] LABS: EDUAAPPEAR Cloudy; EDUABILI Negative (Negative); EDUABLOOD 3+ (Negative); EDUACOLOR1 Light/Pale; EDUAGLUCOSE Negative (Negative); EDUAKETONE Negative (Negative); EDUALEUKO 3+ (Negative); EDUANITRATE Negative (Negative); EDUAPH 8.5; EDUAPROTEIN 1+ (Negative); EDUASPGRAVITY 1.015; EDUAUROBILI 0.2
--- NOTE | 2025-05-13 13:27 | ED.FEMALEGU ---
HPI - Female Genitourinary General Chief complaint: Urogenital-Female Stated complaint: Uti Symptoms Time Seen by Provider: 05/13/25 13:07 Source: patient and RN notes reviewed Mode of arrival: ambulatory Limitations: no limitations History of Present Illness HPI Narrative: Patient presents today complaining of dysuria, frequency, and suprapubic discomfort since yesterday, worse since this morning. No OTC treatment prior to arrival. No recent antibiotic use. No fever, sweats or chills, nausea or vomiting, back pain. Related Data Home Medications ?Medication ?Instructions ?Recorded ?Confirmed ?Last Taken ?Type gabapentin 300 mg capsule 300 mg PO HS 10/30/22 10/26/24 12/28/23 History simvastatin 40 mg tablet 40 mg PO DAILY 10/30/22 10/26/24 12/28/23 History azelastine 137 mcg (0.1 %) nasal 1 spray intranasal Q12H 10/20/23 10/26/24 12/20/23 History spray calcium 600 mg (as 1 tablet PO BID 05/19/24 10/26/24 Unknown History carbonate)-vitamin D3 10 mcg (400 unit) tablet (Calcium with Vitamin D) levocetirizine 5 mg tablet mg 05/13/25 Unknown History montelukast 10 mg tablet mg 05/13/25 Unknown History Allergies Allergy/AdvReac Type Severity Reaction Status Date / Time codeine AdvReac Severe NAUSEA AND Verified 05/13/25 13:01 VOMITING hydrocodone AdvReac Severe NAUSEA AND Verified 05/13/25 13:01 VOMITING morphine AdvReac Severe NAUSEA AND Verified 05/13/25 13:01 VOMITING NSAIDS (Non-Steroidal AdvReac Severe NAUSEA AND Verified 05/13/25 13:01 Anti-Inflamma VOMITING tramadol AdvReac Severe NAUSEA AND Verified 05/13/25 13:01 VOMITING amoxicillin AdvReac Unknown GI UPSET Verified 05/13/25 13:01 clavulanic acid AdvReac Unknown GI UPSET Verified 05/13/25 13:01 PMFSH Past Medical History Medical History Rectocele, female Bright red blood per rectum Dilation of biliary tract Irritable bowel syndrome with constipation Colon cancer screening Lesion of pancreas Bunion of great toe of right foot GERD (gastroesophageal reflux disease) Arthritis Allergies Surgical History Surgical History History of breast mammoplasty Hx of appendectomy History of cholecystectomy History of ankle surgery LY History of knee surgery total RT knee History of tonsillectomy History of hysterectomy History of bunionectomy of right great toe History of left ankle joint replacement History of right knee joint replacement March 2016 Family History Family History Father Acute myocardial infarction, Onset Age: 67 Mother Heart disease Other Diabetes mellitus Social History Social History Smoking status: Former smoker Tobacco type: cigarettes Second hand tobacco smoke exposure: No Smoking end date: 08/16/77 Alcohol intake: current Substance use: never Substance use type: does not use Living arrangements: with family Occupation/Education: retired Gender identity (if verbalized by the patient): Female Sexual Orientation (if Verbalized by the Patient): Straight or Heterosexual Comments At time of signature, I have reviewed and agree with nursing past medical, surgical, social and family history unless otherwise noted. Please see nursing chart for further information. There is no relevant family history pertinent to the presenting complaint Exam Narrative: GENERAL: Well-appearing, well-nourished, and in no acute distress. HEAD: Normocephalic, atraumatic. EYES: EOMI. No redness or drainage. Conjunctivae normal. ENT: Mucous membranes pink and moist. NECK: Normal AROM. CHEST: No respiratory distress. Clear to auscultation. HEART: Regular rate and rhythm. No murmur appreciated. ABDOMEN: Soft, , nondistended, normal active bowel sounds.+ suprapubic tenderness.-CVAT EXTREMITIES: Normal range of motion. No edema. SKIN: Warm, dry, no rash. Capillary refill normal. Normal skin turgor. NEURO: No focal deficits. Alert and oriented x3. Gait steady. PSYCH: Normal affect. No signs of depression or anxiety. Course Course Level of Care: Express Care Visit Vital Signs Vital signs: Vital Signs Temperature 97.1 F L 05/13/25 12:59 Pulse Rate 74 05/13/25 12:59 Respiratory Rate 16 05/13/25 12:59 Blood Pressure 116/52 L 05/13/25 12:59 Pulse Oximetry 94 05/13/25 12:59 Temperature 97.1 F L 05/13/25 12:59 Pulse Rate 74 05/13/25 12:59 Respiratory Rate 16 05/13/25 12:59 Blood Pressure 116/52 L 05/13/25 12:59 Pulse Oximetry 94 05/13/25 12:59 Reviewed MDM - Female Genitourinary MDM Narrative Medical decision making narrative: Patient presents today complaining of dysuria, frequency, and suprapubic discomfort since yesterday, worse since this morning. No OTC treatment. Upon exam, patient has a mildly tender suprapubic area without rebound or guarding. No CVAT. Urinalysis shows 1+ protein, 3+ blood, 3+ leukocytes. Urine culture pending. She will be treated for UTI with Keflex. Also recommended cranberry pills or azo if needed for symptom control. Patient agrees with plan. Vital signs stable. Anticipatory guidance given. ED precautions given. Differential Diagnosis Differential diagnosis: Likely urinary tract infection, cystitis and other (Pyelonephritis) Lab Data Attestation: I reviewed the patient's lab results. Labs: Lab Results 05/13/25 Range/Units 13:14 POC Urine Color Light/pale POC Urine Clarity Cloudy POC Urine pH 8.5 POC Ur Specif [place] 1.015 POC Urine Protein 1+ (Negative) POC Ur Glucose (UA) Negative (Negative) POC Urine Ketones Negative (Negative) POC Urine Blood 3+ (Negative) POC Urine Nitrite Negative (Negative) POC Urine Bilirubin Negative (Negative) POC Urine Urobilinogen 0.2 POC U Leukocyte Esteras 3+ (Negative) Critical Care Time Critical Care Time Critical Care Time: No Discharge Plan Discharge Clinical Impression: UTI (urinary tract infection) Qualifiers: Urinary tract infection type: acute cystitis Hematuria presence: with hematuria Qualified Code(s): N30.01 - Acute cystitis with hematuria Patient Disposition: Home Condition: Stable Instructions: Antibiotic Form, Urinary Tract Infection in Women (ED) Additional Instructions: Your urine shows infection today. Take Keflex as prescribed until gone. Your urine will be sent of for a culture to identify what type of bacteria is causing your infection. If the culture shows that your medication will not get rid of your infection, you will be notified and a new antibiotic will be called in for you. If your symptoms worsen to include fever, sweats, chills, nausea, vomiting, severe abdominal or back pain, please go to the ER for further evaluation. Patient Language: Divehi Prescriptions: New cephalexin 500 mg capsule 500 mg PO BID 7 Days Qty: 14 0RF No Action gabapentin 300 mg capsule 300 mg PO HS simvastatin 40 mg tablet 40 mg PO DAILY calcium carbonate-vitamin D3 [Calcium with Vitamin D] 600 mg-10 mcg (400 unit) Tablet 1 tablet PO BID montelukast 10 mg tablet levocetirizine 5 mg tablet azelastine 137 mcg (0.1 %) aerosol,spray 1 spray intranasal Q12H Rx Instructions: administer into each nostril omeprazole 40 mg capsule,delayed release(DR/EC) See Rx Instructions .ROUTE .COMPLEX Qty: 90 3RF Dose Instruction: TAKE 1 CAPSULE BY MOUTH DAILY Rx Instructions: TAKE 1 CAPSULE BY MOUTH DAILY Follow-up/Referrals: Maurilio,Laxmi Sykes MD [Primary Care Provider] Time of Disposition: 13:16
== END 2025-05-13 13:18 | disposition home or self-care (01) ==
PROVIDERS: Emergency Provider Nurse Practitioner; PCP Family Medicine
DX: N30.01 Acute cystitis with hematuria (principal); K21.9 Gastro-esophageal reflux disease without esophagitis; M19.90 Unspecified osteoarthritis, unspecified site; Z96.662 Presence of left artificial ankle joint; Z96.651 Presence of right artificial knee joint; Z87.891 Personal history of nicotine dependence
CPT/HCPCS: 81003; 87086; 99213; G0463

== ENCOUNTER 2025-06-17 11:07 | Emergency (ER) | payer OTHER, SELFPAY ==
[2025-06-17 11:19] VITALS: BP 105/69; PULSE 85; RESP 16; TEMP 36.3; O2SAT 100
--- NOTE | 2025-06-17 11:50 | ED.SKABFB ---
HPI - Skin/Abscess/Foreign Bdy General Chief complaint: Skin/Abscess/Foreign Body Stated complaint: L FOOT WOUND Time Seen by Provider: 06/17/25 11:25 Source: patient Mode of arrival: ambulatory Limitations: no limitations History of Present Illness HPI narrative: Silvina is a 79 year old female patient presenting to the clinic today with c/o a open wound to left foot x 1 month. Has had increase redness, swelling,and pain over the past few day. No drainage. Turbine Room Attendant debrided a callus last month. No known injury otherwise. Denies any fevers, chills, body aches. Has been getting steroid injections in her ankle. Related Data Home Medications ?Medication ?Instructions ?Recorded ?Confirmed ?Last Taken ?Type gabapentin 300 mg capsule 300 mg PO HS 10/30/22 06/17/25 12/28/23 History simvastatin 40 mg tablet 40 mg PO DAILY 10/30/22 06/17/25 12/28/23 History azelastine 137 mcg (0.1 %) nasal 1 spray intranasal Q12H 10/20/23 10/26/24 12/20/23 History spray calcium 600 mg (as 1 tablet PO BID 05/19/24 10/26/24 Unknown History carbonate)-vitamin D3 10 mcg (400 unit) tablet (Calcium with Vitamin D) levocetirizine 5 mg tablet mg 05/13/25 Unknown History montelukast 10 mg tablet 10 mg 05/13/25 Unknown History Zepbound 06/17/25 Unknown History meloxicam 7.5 mg tablet mg 06/17/25 Unknown History Allergies Allergy/AdvReac Type Severity Reaction Status Date / Time codeine AdvReac Severe NAUSEA AND Verified 06/17/25 11:25 VOMITING hydrocodone AdvReac Severe NAUSEA AND Verified 06/17/25 11:25 VOMITING morphine AdvReac Severe NAUSEA AND Verified 06/17/25 11:25 VOMITING NSAIDS (Non-Steroidal AdvReac Severe NAUSEA AND Verified 06/17/25 11:25 Anti-Inflamma VOMITING tramadol AdvReac Severe NAUSEA AND Verified 06/17/25 11:25 VOMITING amoxicillin AdvReac Unknown GI UPSET Verified 06/17/25 11:25 clavulanic acid AdvReac Unknown GI UPSET Verified 06/17/25 11:25 Review of Systems Review of Systems: Pertinent positives per HPI. Patient denies any fever, chills, rash, headache, visual changes, dizziness, cough, runny nose, sore throat, shortness of breath, chest pain, palpitations, nausea, vomiting, diarrhea, constipation, abdominal pain, or any urinary issues. [facility] Past Medical History Medical History Rectocele, female Bright red blood per rectum Dilation of biliary tract Irritable bowel syndrome with constipation Colon cancer screening Lesion of pancreas Bunion of great toe of right foot GERD (gastroesophageal reflux disease) Arthritis Allergies Surgical History Surgical History History of breast mammoplasty Hx of appendectomy History of cholecystectomy History of ankle surgery LY History of knee surgery total RT knee History of tonsillectomy History of hysterectomy History of bunionectomy of right great toe History of left ankle joint replacement History of right knee joint replacement March 2016 Family History Family History Father Acute myocardial infarction, Onset Age: 67 Mother Heart disease Other Diabetes mellitus Social History Social History Smoking status: Former smoker Tobacco type: cigarettes Second hand tobacco smoke exposure: No Smoking end date: 08/16/77 Alcohol intake: current Substance use: never Substance use type: does not use Living arrangements: with family Occupation/Education: retired Gender identity (if verbalized by the patient): Female Sexual Orientation (if Verbalized by the Patient): Straight or Heterosexual Comments At the time of my signature, I reviewed and agree with the nursing past medical, surgical, social, and family history. There is no relevant family history pertinent to the patient complaint. Exam Narrative: General: Well-developed, well nourished, in no apparent distress Head: Normocephalic, atraumatic. Cardio: Regular rate and rhythm, s1 and s2 normal, no murmur appreciated. Resp: Clear to auscultation bilaterally, no rhonchi, rales, wheezing or rubs. Integumentary: [place], warm, and dry, open wound to the left lateral base of the 5th metatarsal, redness, swelling, and tenderness to palpation without drainage. Very small amount of streaking up towards the dorsal foot Course Course Emergency Course: Portions of this record may have been created with voice recognition software. Level of Care: Express Care Visit Vital Signs Vital signs: Vital Signs Temperature 36.3 C L 06/17/25 11:19 Pulse Rate 85 06/17/25 11:19 Respiratory Rate 16 06/17/25 11:19 Blood Pressure 105/69 06/17/25 11:19 Pulse Oximetry 100 06/17/25 11:19 Temperature 36.3 C L 06/17/25 11:19 Pulse Rate 85 06/17/25 11:19 Respiratory Rate 16 06/17/25 11:19 Blood Pressure 105/69 06/17/25 11:19 Pulse Oximetry 100 06/17/25 11:19 Vital signs reviewed MDM - Skin/Abscess/Foreign Bdy MDM Narrative Medical decision making narrative: At the time of visit patient is resting comfortably on the exam table. Patient appears to be nontoxic. C/o a open wound to left foot x 1 month. Has had increase redness, swelling,and pain over the past few day. No drainage. Turbine Room Attendant debrided a callus last month. No known injury otherwise. Denies any fevers, chills, body aches. Has been getting steroid injections in her ankle. On exam patient has open wound to the left lateral base of the 5th metatarsal, redness, swelling, and tenderness to palpation without drainage. Very small amount of streaking up towards the dorsal foot Plan: I suspect patient has a left foot wound infection. Prescription for mupirocin cream and cephalexin was sent to the pharmacy. Follow-up with locomotive electrician/PCP in 3-5 days for wound check. Supportive measures were discussed with the patient and they voiced understanding discharge instructions and agrees to treatment plan. Return precautions reviewed Differential Diagnosis Differential diagnosis: Likely abscess of skin or subcutaneous tissue and cellulitis Discharge Plan Discharge Clinical Impression: Infected wound Patient Disposition: Home Condition: Stable Instructions: Antibiotic Form, Wound Infection (ED) Additional Instructions: Keep area clean and dry May do Epsom salt soaks 3-4 times daily Take cephalexin as prescribed May apply mupirocin cream to the affected area twice daily x7 days Follow-up with your locomotive electrician her PCP in 3 days for wound check Patient Language: Turkmen Prescriptions: New cephalexin 500 mg capsule 500 mg PO Q8H 7 Days Qty: 21 0RF mupirocin [Centany] 2 % ointment 1 applic topical BID 7 Days Qty: 22 0RF No Action gabapentin 300 mg capsule 300 mg PO HS simvastatin 40 mg tablet 40 mg PO DAILY calcium carbonate-vitamin D3 [Calcium with Vitamin D] 600 mg-10 mcg (400 unit) Tablet 1 tablet PO BID montelukast 10 mg tablet 10 mg levocetirizine 5 mg tablet cephalexin 500 mg capsule 500 mg PO BID 7 Days Qty: 14 0RF meloxicam 7.5 mg tablet Zepbound azelastine 137 mcg (0.1 %) aerosol,spray 1 spray intranasal Q12H Rx Instructions: administer into each nostril omeprazole 40 mg capsule,delayed release(DR/EC) See Rx Instructions .ROUTE .COMPLEX Qty: 90 3RF Dose Instruction: TAKE 1 CAPSULE BY MOUTH DAILY Rx Instructions: TAKE 1 CAPSULE BY MOUTH DAILY Follow-up/Referrals: Maurilio,Laxmi Sykes MD [Primary Care Provider] Time of Disposition: 11:52 Quality NIHSS Nursing Documentation ED NIHSS nursing documentation: reviewed/agree
== END 2025-06-17 11:58 | disposition home or self-care (01) ==
PROVIDERS: Emergency Provider Nurse Practitioner Family; PCP Family Medicine
DX: S91.302A Unspecified open wound, left foot, initial encounter (principal); L08.9 Local infection of the skin and subcutaneous tissue, unspecified; X58.XXXA Exposure to other specified factors, initial encounter; K21.9 Gastro-esophageal reflux disease without esophagitis; M19.90 Unspecified osteoarthritis, unspecified site; Z96.662 Presence of left artificial ankle joint; Z96.651 Presence of right artificial knee joint
CPT/HCPCS: 99213; G0463